=== PATIENT | female | born 1980 | race Caucasian/White ===

== ENCOUNTER 2016-07-25 11:10 | Emergency (ER) | payer OTHER ==
[2016-07-25 11:42] VITALS: BP 136/72
--- NOTE | 2016-07-25 13:04 | RAD ---
INDICATION: Right flank abdominal pain. COMPARISON: There are no prior studies available for comparison. TECHNIQUE: A CT scan of the abdomen and pelvis was performed without intravenous or oral contrast. Contiguous axial sections were obtained from the lung bases through the symphysis pubis. Images were reconstructed in the coronal and sagittal planes. FINDINGS: The lung bases are clear. No pleural effusion is present. The liver and spleen are within normal limits in size without significant focal abnormality on this noncontrast study. No calcified gallstones are seen. The pancreas appears to be within normal limits in size. The adrenal glands and kidneys are normal in size. There are multiple small bilateral renal calculi measuring between 1 and 5 mm in size. No ureteral or bladder calculi are seen. No hydronephrosis is noted. The aorta is normal in caliber without significant calcific plaque. No significant enlarged retroperitoneal lymph nodes are seen. The stomach, small and large bowel appear nondistended. The appendix is within normal limits. There are scattered diverticuli throughout the colon. There is no evidence for diverticulitis or colitis. There is a small periumbilical hernia containing fat. The patient is status post hysterectomy. There are linear calcific densities present in both adnexa possibly representing sutures versus soft tissue calcifications. There is a small amount of free intraperitoneal fluid in the pelvis. No free intraperitoneal air is seen. 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 No significant focal osseous abnormality is seen. IMPRESSION: 1. SMALL AMOUNT OF FREE INTRAPERITONEAL FLUID IN THE PELVIS. 2. MULTIPLE SMALL BILATERAL RENAL CALCULI, NO EVIDENCE FOR HYDRONEPHROSIS. 3. STATUS POST HYSTERECTOMY.
[2016-07-25] MEDS ORDERED: Ketorolac INJ* 60 MG/2 ML VIAL IM ONE (13:13)
--- NOTE | 2016-07-25 13:30 | UC ---
Back Pain HPI - HPI Summary HPI Summary: RIGHT LOWER FLANK PAIN FOR FIVE DAYS. NO INJURY. NO FEVER. NO URINARY DISCOMFORT. NO ABDOMINAL PAIN. NO NOTED BLOOD IN URINE. - History of Current Complaint Chief Complaint: UCBackPain Stated Complaint: LOWER BACK PAIN Time Seen by Provider: 07/25/16 11:41 Hx Obtained From: Patient Onset/Duration: Gradual Onset, Lasting Days, Still Present Timing: Lasting Days Severity Initially: Moderate Severity Currently: Mild Back Pain: Is Discrete @ - RIGHT LOW BACK/FLANK Character: Dull, Aching Aggravating: Movement, Cough Associated Signs And Symptoms: Positive: Flank Pain. Negative: Fever, Numbness , Tingling, Bladder Incontinence, Bowel Incontinence, Pain with Weight Bearing - Risk Factors AAA Risk Factors: Negative TAD Risk Factors: Negative Cauda Equina Risk Factors: Negative Epidural Abscess Risk Factors: Negative - Allergies/Home Medications Allergies/Adverse Reactions: Allergies Allergy/AdvReac Type Severity Reaction Status Date / Time Adhesive Tape Allergy Rash Verified 05/22/15 12:29 Bee Venom Allergy Anaphylatic Verified 07/25/16 11:36 Shock Ondansetron [From Zofran] Allergy Shortness Verified 07/25/16 11:36 of Breath Penicillins Allergy Rash Verified 05/22/15 12:29 Promethazine [From Phenergan] Allergy Shortness Verified 07/25/16 11:36 of Breath PMH/Surg Hx/FS Hx/Imm Hx Previously Healthy: Yes Endocrine History Of: Denies: Diabetes Cardiovascular History Of: Denies: Hypertension, Pacemaker/ICD GI/ History Of: Denies: Renal Disease - Surgical History Surgical History: Yes Surgery Procedure, Year, and Place: 2 C SECTIONS-PARTIAL HYSTERECTOMY-LEFT BIG TOE FIXED WITH SCREW. TONSILS - Family History Known Family History: Positive: Renal Disease - KIDNEY STONES - Social History Occupation: Employed Full-time Lives: With Family Alcohol Use: None Substance Use Type: None Smoking Status (MU): Never Smoked Tobacco Review of Systems Constitutional: Negative Skin: Negative Eyes: Negative ENT: Negative Respiratory: Negative Cardiovascular: Negative Gastrointestinal: Negative Genitourinary: Negative Motor: Negative Neurovascular: Negative Musculoskeletal: Negative Neurological: Negative Psychological: Negative All Other Systems Reviewed And Are Negative: Yes Physical Exam Triage Information Reviewed: Yes Appearance: Well-Appearing, Well-Nourished, Pain Distress - MILD Vital Signs: Initial Vital Signs Temp 98.3 F 07/25/16 11:36 Pulse 78 07/25/16 11:36 Resp 16 07/25/16 11:36 BP 136/72 07/25/16 11:36 Pulse Ox 97 07/25/16 11:36 Vital Signs Reviewed: Yes Eye Exam: Normal ENT Exam: Normal ENT: Positive: Normal ENT inspection, Hearing grossly normal, TMs normal Dental Exam: Normal Neck exam: Normal Neck: Positive: Supple, Nontender Respiratory Exam: Normal Respiratory: Positive: Chest non-tender, Lungs clear, Normal breath sounds, No respiratory distress, No accessory muscle use Cardiovascular Exam: Normal Cardiovascular: Positive: RRR, No Murmur Abdominal Exam: Normal Abdomen Description: Positive: Nontender, No Organomegaly, Soft. Negative: CVA Tenderness (R), CVA Tenderness (L) Musculoskeletal Exam: Normal Neurological Exam: Normal Psychological Exam: Normal Skin Exam: Normal Back Pain Course/Dx - Differential Dx/Diagnosis Differential Diagnosis/HQI/PQRI: Renal Colic, Strain, Sprain Provider Diagnoses: MULTIPLE SMALL BILATERAL RENAL CALCULI Discharge - Discharge Plan Condition: Stable Disposition: HOME Prescriptions: Ketorolac TAB * [Toradol TAB *] 10 mg PO Q6H PRN #18 tab PRN Reason: Pain Tamsulosin CAP* [Flomax CAP*] 0.4 mg PO DAILY #7 cap Patient Education Materials: Kidney Stones (ED) Referrals: Noble Borrero MD [Primary Care Provider] - Сергей Ho MD [Medical Doctor] -
== END 2016-07-25 13:37 | disposition home or self-care (01) ==
LOC: UCEAST 11:10
DX: N20.0 Calculus of kidney (principal)
CPT/HCPCS: 74176; 81003; 96372; 99212; G0463; J1885

== ENCOUNTER 2018-05-19 12:57 | Emergency (ER) | payer OTHER ==
[2018-05-19 13:16] VITALS: BP 117/86
--- NOTE | 2018-05-19 13:45 | UC ---
General HPI - HPI Summary HPI Summary: Patient c/o chest pain for the past 3 days. Started evening of 05/16 while at rest, sharp stabbing pain under her collar bone, with left sided chest pressure and fullness on the left side of her neck. Seems worse with taking a deep breath. Pressure seems constant and sharp stabbing pain comes and goes. Denies any exertional activity, no heavy lifting or twisting. No SOB. No nausea. She does have intermittent numbness and tingling down her left arm. Advil does seem to help. PMHx: Mitral valve prolapse. MEds; reviewed. - History of Current Complaint Chief Complaint: UCChestPain Stated Complaint: SHOULDER/NECK PAIN Time Seen by Provider: 05/19/18 13:25 Hx Last Menstrual Period: hyster Pain Intensity: 4 - Allergy/Home Medications Allergies/Adverse Reactions: Allergies Allergy/AdvReac Type Severity Reaction Status Date / Time Adhesive Tape Allergy Rash Verified 05/22/15 12:29 MS Bee Venom [Bee Venom] Allergy Anaphylatic Verified 07/25/16 11:36 Shock MS Ondansetron [From Zofran] Allergy Shortness Verified 07/25/16 11:36 of Breath MS Penicillins [Penicillins] Allergy Rash Verified 05/22/15 12:29 MS Promethazine Allergy Shortness Verified 07/25/16 11:36 [From Phenergan] of Breath PMH/Surg Hx/FS Hx/Imm Hx Previously Healthy: Yes - Surgical History Surgical History: Yes Surgery Procedure, Year, and Place: 2 C SECTIONS-PARTIAL HYSTERECTOMY-LEFT BIG TOE FIXED WITH SCREW. TONSILS - Family History Known Family History: Positive: Renal Disease - KIDNEY STONES - Social History Alcohol Use: None Substance Use Type: None Smoking Status (MU): Never Smoked Tobacco Review of Systems All Other Systems Reviewed And Are Negative: Yes Cardiovascular: Positive: Chest Pain Physical Exam Triage Information Reviewed: Yes Appearance: Well-Appearing Vital Signs: Initial Vital Signs Temp 97.7 F 05/19/18 13:12 Pulse 86 05/19/18 13:12 Resp 18 05/19/18 13:12 BP 117/86 05/19/18 13:12 Pulse Ox 100 05/19/18 13:12 Eyes: Positive: Conjunctiva Clear ENT: Positive: Normal ENT inspection Neck: Positive: Supple, Nontender Respiratory: Positive: Lungs clear, Normal breath sounds Cardiovascular: Positive: RRR, Other: - soft systolic murmur Musculoskeletal: Positive: Other: - No reproducible pain with neck and shoulder exam Diagnostics - EKG Cardiac Rate: NL Course/Dx - Course Course Of Treatment: This is a 37 yr old previous healthy c/o chest pressure and stabbing shoulder pain, with numbness radiating down left arm. EKG: NSR. VItal unremarkable. NO cardiac risk factors. DIscussed this is likely a pinched nerve or musculoskeletal issue but would recommend a troponin and d- dimer to rule out ACS or PE. Discussed transporting to the ER via EMS. Patient elected to go via car directly to the ER to be evaluated. - Diagnoses Provider Diagnosis: Chest pain Discharge - Sign-Out/Discharge Documenting (check all that apply): Patient Departure All imaging exams completed and their final reports reviewed: No Studies - Discharge Plan Condition: Fair Disposition: TRANS HIGHER LVL OF CARE FAC Referrals: Noble Borrero MD [Primary Care Provider] - Additional Instructions: Patient elected to drive directly to [facility] for evaluation for chest pain Recommend obtaining at minimum troponin and d-dimer. - Billing Disposition and Condition Condition: FAIR Disposition: Trans Higher Lvl of Care Fac
== END 2018-05-19 13:40 | disposition short-term general hospital (02) ==
LOC: UCEAST 12:57
DX: R07.9 Chest pain, unspecified (principal); Z88.0 Allergy status to penicillin; Z91.09 Other allergy status, other than to drugs and biological substances; Z91.030 Bee allergy status; Z88.8 Allergy status to other drugs, medicaments and biological substances
CPT/HCPCS: 99212; G0463